=== PATIENT | female | born 1965 | race Caucasian/White ===

== ENCOUNTER 2017-07-20 01:15 | Inpatient (IN) ==
[2017-07-20] MEDS ORDERED: ONDANSETRON 4 MG/2 ML VIAL IV STA (02:31)
[2017-07-20] MEDS ORDERED: KETOROLAC 30 MG/1 ML VIAL IV STA (02:31)
[2017-07-20] MEDS ORDERED: ONDANSETRON 4 MG/2 ML VIAL ONE ×2 (02:59→06:31)
[2017-07-20] MEDS ORDERED: KETOROLAC 30 MG/1 ML VIAL ONE (02:59)
[2017-07-20 03:19] LABS: Basophils # 0.1 10*3/uL (0.0-0.2); Basophils % 0.6 % (0.0-0.8); Eosinophils # 0.1 10*3/uL (0.0-0.87); Eosinophils % 1.2 % (0.00-10.9); Hematocrit 34.7 VOL% (35.7-47.0); Hemoglobin 10.5 GM/DL (12.0-16.0); Immature Granulocytes % 0.4 %; Immature Granulocytes Absolute 0.04 #; Lymphocytes # 2.1 10*3/uL (1.4-4.0); Lymphocytes % 19.5 % (21.3-54.2); Mean Corpuscular HGB Conc 30.3 GM/DL (32-36); Mean Corpuscular Hemoglobin 22 PG (27-34); Mean Corpuscular Volume 73.8 FL (87-102); Mean Platelet Volume 9.3 FL (9.6-12.0); Monocytes # 0.8 10*3/uL (0.11-0.8); Monocytes % 7.5 % (1.7-12.7); Neutrophils # 7.5 10*3/uL (1.4-7.4); Neutrophils % 70.8 % (38.7-73.9); Platelet Count 359 T/CUMM (130-400); Red Cell Distribution Width 17.3 % (9.3-17.3); White Blood Count 10.6 T/CUMM (4-12)
[2017-07-20 03:33] LABS: Apearance,Urine CLEAR (Clear); Bilirubin,Urine Negative (Negative); Blood, Urine Negative (Negative); Glucose,Urine (UA) Negative (Negative); Ketones,Urine Negative (Negative); Mucus,Urine Occasional /LPF (Occasional); Nitrite,Urine Negative (Negative); Protein,Urine Negative; RBC,Urine <1 /HPF (0-4); Squamous Epithelial Cell,Urine Occasional /HPF (0-10); Urine Color Straw (Yellow); Urine Specific Gravity 1.005 (1.001-1.035); Urine Urobilinogen < 2.0 EU/DL (0.2-1.0); WBC,Urine 1 /HPF (0-6)
[2017-07-20 03:44] LABS: Albumin 3.9 G/DL (3.4-5.0); Bilirubin,Total 0.5 MG/DL (0.2-1.0); Calcium 8.9 MG/DL (8.5-10.1); Osmolality,Calculated 276.5 MOS/KG (273-304); Total Protein 6.9 G/DL (6.4-8.3)
[2017-07-20] MEDS ORDERED: ENOXAPARIN 40 MG/0.4 ML SYRINGE SUBCUT SCH (06:00)
[2017-07-20] MEDS ORDERED: HYDROmorphone 2 MG/1 ML VIAL ONE (06:32)
[2017-07-20] MEDS: ONDANSETRON 4 MG/2 ML VIAL IV PRN ×3 (06:36→19:56)
[2017-07-20] MEDS: HYDROmorphone 2 MG/1 ML VIAL IV PRN ×4 (06:39→19:56)
[2017-07-20 07:58] LABS: Risk Ratio 3.22; VLDL CHOLESTEROL 14.2 MG/DL
[2017-07-20] MEDS: SODIUM CHLORIDE 0.9% 1,000 ML IV SCH ×2 (08:46→17:48)
[2017-07-21] MEDS: SODIUM CHLORIDE 0.9% 1,000 ML IV SCH ×3 (00:40→17:06)
[2017-07-21] MEDS: HYDROmorphone 2 MG/1 ML VIAL IV PRN ×3 (01:58→21:10)
[2017-07-21 05:44] LABS: Basophils % 0.3 % (0.0-0.8); Eosinophils # 0.2 10*3/uL (0.0-0.87); Eosinophils % 1.7 % (0.00-10.9); Hematocrit 31.7 VOL% (35.7-47.0); Hemoglobin 9.7 GM/DL (12.0-16.0); Immature Granulocytes % 0.4 %; Immature Granulocytes Absolute 0.04 #; Lymphocytes # 1.9 10*3/uL (1.4-4.0); Lymphocytes % 18.7 % (21.3-54.2); Mean Corpuscular HGB Conc 30.6 GM/DL (32-36); Mean Corpuscular Hemoglobin 23 PG (27-34); Mean Corpuscular Volume 73.7 FL (87-102); Mean Platelet Volume 9.8 FL (9.6-12.0); Monocytes % 9.8 % (1.7-12.7); Neutrophils # 6.9 10*3/uL (1.4-7.4); Neutrophils % 69.1 % (38.7-73.9); Platelet Count 333 T/CUMM (130-400); Red Cell Distribution Width 17.6 % (9.3-17.3)
[2017-07-21 05:52] LABS: Giant Platelets Few; Hypochromasia 1+; Microcytosis Slight; Ovalocytes Slight; Platelet Estimate Adequate
[2017-07-21 05:59] LABS: Albumin 3.2 G/DL (3.4-5.0); Bilirubin,Total 1.1 MG/DL (0.2-1.0); Osmolality,Calculated 281.1 MOS/KG (273-304); Total Protein 6.2 G/DL (6.4-8.3)
[2017-07-21] MEDS: ONDANSETRON 4 MG/2 ML VIAL IV PRN ×3 (08:43→18:34)
[2017-07-21] MEDS: PANTOPRAZOLE 40 MG TABLET PO SCH (10:10)
[2017-07-21] MEDS: DULoxetine 30 MG CAPSULE PO SCH (10:10)
[2017-07-21] MEDS ORDERED: ONDANSETRON 4 MG/2 ML VIAL ONE (10:11)
[2017-07-21] MEDS ORDERED: LIDOCAINE 2% 5 ML VIAL ONE (11:09)
[2017-07-21] MEDS ORDERED: PROPOFOL 200 MG/20 ML VIAL IV ONE (11:09)
[2017-07-21] MEDS: KETOROLAC 30 MG/1 ML VIAL IV PRN ×2 (12:43→18:34)
[2017-07-22] MEDS: ONDANSETRON 4 MG/2 ML VIAL IV PRN ×3 (02:33→13:16)
[2017-07-22] MEDS: HYDROmorphone 2 MG/1 ML VIAL IV PRN ×4 (02:33→19:39)
[2017-07-22] MEDS: SODIUM CHLORIDE 0.9% 1,000 ML IV SCH ×3 (04:39→23:18)
[2017-07-22 07:36] LABS: Albumin 3.2 G/DL (3.4-5.0); Bilirubin,Total 1.1 MG/DL (0.2-1.0); Osmolality,Calculated 279.3 MOS/KG (273-304); Potassium 3.7 MMOL/L (3.5-5.1); Total Protein 6.1 G/DL (6.4-8.3)
[2017-07-22] MEDS: PROMETHAZINE 25 MG/1 ML VIAL IM PRN ×2 (11:06→23:17)
[2017-07-22] MEDS: PANTOPRAZOLE 40 MG TABLET PO SCH (11:08)
[2017-07-22] MEDS: DULoxetine 30 MG CAPSULE PO SCH (11:08)
[2017-07-23] MEDS: HYDROmorphone 2 MG/1 ML VIAL IV PRN ×3 (01:00→21:36)
[2017-07-23] MEDS: SODIUM CHLORIDE 0.9% 1,000 ML IV SCH ×2 (07:18→18:00)
[2017-07-23] MEDS: PANTOPRAZOLE 40 MG TABLET PO SCH (09:51)
[2017-07-23] MEDS: DULoxetine 30 MG CAPSULE PO SCH (09:55)
[2017-07-23] MEDS: ONDANSETRON 4 MG/2 ML VIAL IV PRN (21:34)
[2017-07-24] MEDS: SODIUM CHLORIDE 0.9% 1,000 ML IV SCH (00:27)
[2017-07-24 03:36] LABS: Basophils % 0.4 % (0.0-0.8); Eosinophils # 0.4 10*3/uL (0.0-0.87); Eosinophils % 4.6 % (0.00-10.9); Hematocrit 29.4 VOL% (35.7-47.0); Hemoglobin 8.9 GM/DL (12.0-16.0); Immature Granulocytes % 0.4 %; Immature Granulocytes Absolute 0.03 #; Lymphocytes # 2.2 10*3/uL (1.4-4.0); Lymphocytes % 26.7 % (21.3-54.2); Mean Corpuscular HGB Conc 30.3 GM/DL (32-36); Mean Corpuscular Hemoglobin 22 PG (27-34); Mean Corpuscular Volume 73.9 FL (87-102); Mean Platelet Volume 9.5 FL (9.6-12.0); Monocytes % 11.6 % (1.7-12.7); Neutrophils # 4.7 10*3/uL (1.4-7.4); Neutrophils % 56.3 % (38.7-73.9); Platelet Count 295 T/CUMM (130-400); Red Blood Count 3.98 MC/CUMM (3.8-5.5); Red Cell Distribution Width 17.6 % (9.3-17.3); White Blood Count 8.4 T/CUMM (4-12)
[2017-07-24] MEDS: HYDROmorphone 2 MG/1 ML VIAL IV PRN (04:15)
[2017-07-24] MEDS: PROMETHAZINE 25 MG/1 ML VIAL IM PRN (04:17)
[2017-07-24 05:30] VITALS: BP 141/79
== END 2017-07-24 08:30 | disposition home or self-care (01) | DRG 439 ==
LOC: N.ED 01:15 → SUATTDRO 05:49 → N.EDINP 06:51 → N.2E 06:57
PROVIDERS: ADMIT Internal Medicine; ATTEND Internal Medicine Infectious Disease